=== PATIENT | male | born 1965 | race Caucasian/White ===

== ENCOUNTER 2024-10-07 09:27 | Outpatient (RCR) | payer OTHER, SELFPAY | END 2024-10-07 23:59 | disposition home or self-care (01) | LOC: RST 09:27 | PROVIDERS: ATTENDING PHYSICIAN Psychiatry & Neurology Neurology | DX: G30.0 Alzheimer's disease with early onset (principal); R47.01 Aphasia; R41.841 Cognitive communication deficit; F02.80 Dementia in other diseases classified elsewhere, unspecified severity, without behavioral disturbance, psychotic disturbance, mood disturbance, and anxiety | CPT/HCPCS: 92507; 92523 ==

== ENCOUNTER 2024-10-27 12:21 | Outpatient (RCR) | payer OTHER, SELFPAY | END 2024-10-27 23:59 | disposition home or self-care (01) | LOC: RST 12:21 | PROVIDERS: ATTENDING PHYSICIAN Psychiatry & Neurology Neurology | DX: G30.0 Alzheimer's disease with early onset (principal); R47.01 Aphasia; R41.841 Cognitive communication deficit; F02.80 Dementia in other diseases classified elsewhere, unspecified severity, without behavioral disturbance, psychotic disturbance, mood disturbance, and anxiety | CPT/HCPCS: 92507 ==